=== PATIENT | female | born 1955 | race African-American/Black ===

== ENCOUNTER 2022-09-14 17:00 | Emergency (ER) | payer OTHER ==
[~2022-09-14] VITALS: Ht 167.6 cm; Wt 59.0 kg
[2022-09-14 17:39] VITALS: BP_SYST 143
[2022-09-14 19:58] LABS: HEMOGLOBIN 9.7 g/dL (12.0-16.0); MEAN CORPUSCULAR HEMOGLOBIN 31 pg (27-31); MEAN CORPUSCULAR HGB CONC 33 % (32-36); MEAN CORPUSCULAR VOLUME 93 fL (79.0-98.0); PLATELET COUNT (AUTO) 55 K/uL (130-430); RED BLOOD CELL COUNT(AUTO) 3.13 MIL/uL (4.2-6.2); RED CELL DISTRIBUTION WIDTH 16.4 % (9.0-15.0)
[2022-09-14 20:05] LABS: ANION GAP 9 (5-15); CHLORIDE 105 mmol/L (98-107); CREATININE 1.42 mg/dL (0.55-1.30); GFR AFRICAN AMERICAN 47 mL/min (>90); GLUCOSE 282 mg/dL (70-99); UREA NITROGEN, BLOOD 21 mg/dL (8-21)
[2022-09-14 20:15] LABS: ALANINE AMINOTRANSFERASE 25 U/L (12-78); ALBUMIN 3.1 g/dL (3.4-4.8); AMYLASE 72 U/L (0-100); ASPARTATE AMINOTRANSFERASE 12 U/L (10-37); C-REACTIVE PROTEIN QUANT 1.5 mg/dL (0-0.5); LACTATE DEHYDROGENASE 275 U/L (81-234); LIPASE 92 U/L (73-393); TOTAL BILIRUBIN 0.4 mg/dL (0.0-1.0)
[2022-09-14 20:21] LABS: WHITE BLOOD COUNT (AUTO) 1.5 K/uL (4.8-10.8)
[2022-09-14 20:59] LABS: ACETONE, SERUM NEGATIVE (NEGATIVE)
--- NOTE | 2022-09-14 22:00 | NUR ---
PT FROM HOME WITH C/O OF EPIGASTRIC PAIN RADIAITNG TO THE BACK X COUPLE OF DAYS. PT DENIES N/V, AND DIARRHEA. AMBULATORY AND A&O X4.
--- NOTE | 2022-09-14 22:08 | NUR ---
DR. PORTER WITH PATIENT FOR MSE.
[2022-09-14 22:30] LABS: BAND % (MANUAL) 7 % (0-6); BASOPHILS % (MANUAL) 0 % (0-2); EOSINOPHILS % (MANUAL) 0 % (0-7); LYMPHOCYTES % (MANUAL) 7 % (20-46); MONOCYTES % (MANUAL) 4 % (0-11)
[2022-09-14] MEDS ORDERED: OMEP20CA15 PO (22:37)
[2022-09-14] MEDS ORDERED: MAG HYDROX/AL HYDROX/SIMETH 30 ML, DICYCLOMINE HCL 20 MG, LIDOCAINE VISCOUS 2% 15ML (PO... PO ONE ×3 (22:45)
--- NOTE | 2022-09-14 23:10 | NUR ---
Patient given written and verbal discharge instructions and verbalizes understanding. ER MD discussed with patient the results and treatment provided. Patient in stable condition. ID arm band removed. Rx of Omeprazole given. Patient educated on pain management and to follow up with PMD. Pain Scale 4/10. Opportunity for questions provided and answered. Medication side effect fact sheet provided.
[2022-09-14 23:11] VITALS: BP_SYST 138
== END 2022-09-14 23:12 | disposition home or self-care (01) ==
LOC: SED 17:00
DX: K29.70 Gastritis, unspecified, without bleeding (principal); R10.13 Epigastric pain; I10 Essential (primary) hypertension; Z79.899 Other long term (current) drug therapy
CPT/HCPCS: 99284; 74176; 85027; 80053; 82009; 82150; 83615; 83690; 85007; 86140; 84484; 36415; 76376; 83605; J2001